=== PATIENT | female | born 1960 | race Caucasian/White ===

== ENCOUNTER 2020-02-14 15:25 | Emergency (ER) | payer BC, OTHER ==
--- NOTE | 2020-02-14 16:51 | UC ---
Skin Complaint HPI - HPI Summary HPI Summary: Per electrical service technician: "Pt states she had removal squamous carcinoma upper back- stitches on 02/04/20. Pt was told to have them removed in 2 weeks. Pt states she woke with sore throat , headache, swollen glands, mucous in the back of her throat, chills, body aches. No cough, shortness of breath. Pt flew 2 weeks ago. " -TC to exam room - She and her husbadn were in [place], [place] area and flew back on 02/01/20. She had sutures placed at derm on 02/04/20. she is due to have them removed on 02/18/20. she offers her to take them out. -felt fine until yesteredya morning when she woke up with bad ST, swollen glands , + DUNNE over forehead/behind eyes. + glands swollen anterior cx LNs, + myalgias. -Today woke up with no ST, no DUNNE and then realized she did have ST when she talked to her dtr over the phone. + thick mucous PND that requires her to drinka lot of water. she took APAP yesterday -doesnt have thermometer -felt some mild chills x 2 days. no perspiration, not hot. -dtr has ST/swollen glabnds and temp of 100-101 but has not had recent contact. -[facility] to see endocrine for a muscle disease/thryoid, labs done. Dr Carlson. +shoulder aches/muscles - does not have sx - he is still working at [employer] and is exposed to many people. -denies cough, denies, no loss of taste or smell. -she did nottake any fever reducers today. - History of Current Complaint Chief Complaint: UCGeneralIllness Time Seen by Provider: 02/14/20 16:36 Stated Complaint: stitches removed COUGH/ST/HEADACHE Pain Intensity: 3 - Allergy/Home Medications Allergies/Adverse Reactions: Allergies Allergy/AdvReac Type Severity Reaction Status Date / Time procaine [From Novocain] Allergy See Comment Verified 02/14/20 15:47 Home Medications: Home Medications Atenolol TAB* [Tenormin TAB* 25 MG] 25 mg PO DAILY 11/12/14 [History Confirmed 02/14/20] PMH/Surg Hx/FS Hx/Imm Hx Cardiovascular History: Hypertension - Surgical History Surgical History: Yes Surgery Procedure, Year, and Place: - Family History Known Family History: Positive: Other - is not ill - Social History Alcohol Use: None Substance Use Type: None Smoking Status (MU): Former Smoker When Did the Patient Quit Smoking/Using Tobacco: stopped 40 years ago Review of Systems All Other Systems Reviewed And Are Negative: Yes Constitutional: Positive: Chills. Negative: Fever Skin: Positive: Negative. Negative: Rash Eyes: Positive: Negative. Negative: Drainage ENT: Positive: Sore Throat, Other - + PND. Negative: Sinus Pain/Tenderness Respiratory: Positive: Negative. Negative: Shortness Of Breath, Cough Cardiovascular: Positive: Negative. Negative: Palpitations, Chest Pain Gastrointestinal: Positive: Negative, Other - decreased appetite. Negative: Vomiting, Diarrhea, Nausea Genitourinary: Positive: Negative. Negative: Dysuria Motor: Positive: Negative Neurovascular: Positive: Negative Musculoskeletal: Positive: Myalgia Neurological/Mental Status: Positive: Negative Psychological: Positive: Negative Is Patient Immunocompromised?: No Physical Exam Appearance: Well-Appearing, No Pain Distress, Well-Nourished - observed in nursing station. spoke with pt over the phone. she is speaking full senetnces, voice is nomral. no hot potato voice. clear and logical thought processing Course/Dx - Course Course Of Treatment: 59 yr old who flew back from [place] 02/01/20, sx started when she awoke on 02/13/20 AM of DUNNE, ST, + PND, swollen glands. no cough, no fever. no SOB/pain with breathing. Discussed w/ pt that this could be a viral upper respiratory infection. Reassuringly no fever, cough or SOB -needs to isolate at least until results are back. -rapid flu -rapid strep - negative -covid pending - Differential Diagnoses - Skin Complaint Differential Diagnoses: Other - strep, flu, URI, covid - Diagnoses Provider Diagnosis: Pharyngitis Discharge ED - Sign-Out/Discharge Documenting (check all that apply): Patient Departure All imaging exams completed and their final reports reviewed: No Studies - Discharge Plan Condition: Stable Disposition: HOME Patient Education Materials: Pharyngitis (ED) Forms: COVID-19 Tested & Isolation Referrals: Elissa Gonzalez PA [Primary Care Provider] - 1 Day (call PCP as FYI for further guidance for tomorrow. ) Additional Instructions: -You have been tested for covid, you will receive your results for 3-5 days. Self quarantine (instructions provided) x 14 days and follow instructions of your PCP. Please call your PCP tomorrow to notify them of today's visit so they can continue to follow you. -Drink plenty of fluids and water -tylenol for body aches and fever. -please go directly to the ER with any shortness of breath, difficulty breathing , chest pain. Make sure to call ahead to the ER to notify them. - Billing Disposition and Condition Condition: STABLE Disposition: Home
[2020-02-14 17:13] VITALS: BP 127/67
[2020-02-14 17:28] LABS: Influenza A Molecular Negative (Negative); Influenza B Molecular Negative (Negative)
== END 2020-02-14 17:47 | disposition home or self-care (01) ==
LOC: UCCORT 15:25
DX: J02.9 Acute pharyngitis, unspecified (principal); R51 Headache; R68.83 Chills (without fever); M79.10 Myalgia, unspecified site; R09.82 Postnasal drip; R59.1 Generalized enlarged lymph nodes; Z20.828 Contact with and (suspected) exposure to other viral communicable diseases; C44.529 Squamous cell carcinoma of skin of other part of trunk; I10 Essential (primary) hypertension; Z79.899 Other long term (current) drug therapy; Z88.4 Allergy status to anesthetic agent; Z87.891 Personal history of nicotine dependence
CPT/HCPCS: 87635; 87651; 99211; G0463